=== PATIENT | male | born 1980 ===

== ENCOUNTER 2020-11-28 16:52 | Emergency (ER) | payer OTHER ==
[~2020-11-28] VITALS: Ht 180.3 cm; Wt 105.0 kg
--- NOTE | 2020-11-28 17:13 | PHYS DOC ---
Past Medical History Past Medical History: Kidney Stone (NNEKA CUMMINGS DO) General Adult EDM: Chief Complaint: FLANK PAIN HPI: HPI: Patient is a 40 year old male who presented to ER for evaluation of right flank pain. Patient described the pain is very severe in nature, he also urinated blood. Patient has history of flank pain in the past. Patient denies any chest pain, no trouble breathing, no cough, no fever. The pain radiated to his back. (NNEKA CUMMINGS DO) Review of Systems: Review of Systems: Constitutional: Denies fever or chills. [] Eyes: Denies change in visual acuity. [] HENT: Denies nasal congestion or sore throat. [] Respiratory: Denies cough or shortness of breath. [] Cardiovascular: Denies chest pain or edema. [] GI: Positive for abdominal pain, right flank pain. : Denies dysuria. [] Musculoskeletal: Denies back pain or joint pain. [] Integument: Denies rash. [] Neurologic: Denies headache, focal weakness or sensory changes. [] Endocrine: Denies polyuria or polydipsia. [] Lymphatic: Denies swollen glands. [] Psychiatric: Denies depression or anxiety. [] (NNEKA CUMMINGS DO) Heart Score: C/O Chest Pain: N/A Risk Factors: Risk Factors: DM, Current or recent (<one month) smoker, HTN, HLP, family history of CAD, obesity. Risk Scores: Score 0 - 3: 2.5% MACE over next 6 weeks - Discharge Home Score 4 - 6: 20.3% MACE over next 6 weeks - Admit for Clinical Observation Score 7 - 10: 72.7% MACE over next 6 weeks - Early Invasive Strategies (NNEKA CUMMINGS DO) C/O Chest Pain: No (MIRIAM MCWILLIAMS MD) Current Medications: Current Medications Medications (Trade) Dose Ordered Sig/Mckenzie Start Time Stop Time Status Last Admin Dose Admin Morphine Sulfate (Morphine Sulfate) 4 mg 1X ONCE 11/28/20 17:15 11/28/20 17:16 UNV Ondansetron HCl (Zofran) 4 mg 1X ONCE 11/28/20 17:15 11/28/20 17:16 UNV (NNEKA CUMMINGS DO) Allergies: Allergies: Allergies Coded Allergies Type Severity Reaction Last Updated Verified No Known Drug Allergies 11/28/20 No (NNEKA CUMMINGS DO) Physical Exam: PE: General: Appears uncomfortable, restless in bed unable to find a comfortable position but non toxic Skin: Warm, dry. Normal for ethnicity. HEENT: Atraumatic. PERRLA. Moist mucous membranes. Neck: Trachea midline. Normal ROM. Respiratory: Mildly tachypneic with patient writhing in pain. Normal WOB. CTAB. Cardiovascular: Regular rate and rhythm. Normal peripheral perfusion. No edema. Abdomen: Soft. Right upper quadrant tender. No distension. Back: Right-sided CVA tenderness to palpation. Normal ROM. Musculoskeletal: No swelling or deformity. Neuro: Alert and oriented x 4. MAEE. Psych: Normal affect and mood. (NNEKA CUMMINGS DO) Current Patient Data: Labs: Laboratory Tests Test 11/28/20 17:18 White Blood Count 9.9 x10^3/uL Red Blood Count 4.43 x10^6/uL Hemoglobin 16.6 g/dL Hematocrit 47.3 % Mean Corpuscular Volume 107 fL Mean Corpuscular Hemoglobin 37 pg Mean Corpuscular Hemoglobin Concent 35 g/dL Red Cell Distribution Width 15.3 % Platelet Count 289 x10^3/uL Neutrophils (%) (Auto) 53 % Lymphocytes (%) (Auto) 36 % Monocytes (%) (Auto) 8 % Eosinophils (%) (Auto) 3 % Basophils (%) (Auto) 1 % Neutrophils # (Auto) 5.2 x10^3/uL Lymphocytes # (Auto) 3.6 x10^3/uL Monocytes # (Auto) 0.8 x10^3/uL Eosinophils # (Auto) 0.3 x10^3/uL Basophils # (Auto) 0.1 x10^3/uL Sodium Level 142 mmol/L Potassium Level 3.4 mmol/L Chloride Level 104 mmol/L Carbon Dioxide Level 25 mmol/L Anion Gap 13 Blood Urea Nitrogen 11 mg/dL Creatinine 1.1 mg/dL Estimated GFR (Cockcroft-Gault) 74.9 BUN/Creatinine Ratio 10 Glucose Level 103 mg/dL Calcium Level 8.6 mg/dL Total Bilirubin 0.6 mg/dL Aspartate Amino Transf (AST/SGOT) 63 U/L Alanine Aminotransferase (ALT/SGPT) 88 U/L Alkaline Phosphatase 131 U/L Total Protein 8.4 g/dL Albumin 4.0 g/dL Albumin/Globulin Ratio 0.9 Current Medications Medications (Trade) Dose Ordered Sig/Mckenzie Route PRN Reason Start Time Stop Time Status Last Admin Dose Admin Ondansetron HCl (Zofran) 4 mg 1X ONCE IVP 11/28/20 17:15 11/28/20 17:16 DC 11/28/20 17:22 Morphine Sulfate (Morphine Sulfate) 4 mg 1X ONCE IV 11/28/20 17:15 11/28/20 17:16 DC 11/28/20 17:23 (NNEKA CUMMINGS DO) EKG: EKG: [] (NNEKA CUMMINGS DO) Radiology/Procedures: Radiology/Procedures: [] (NNEKA CUMMINGS DO) Radiology/Procedures: [facility] [address] [place] [address] IMAGING REPORT Signed PATIENT: ROBERT NVAARRETE ACCOUNT: [id number] : 1980 LOCATION: ER AGE: 40 SEX: M EXAM STATUS: REG ER ORD. PHYSICIAN: NNEKA CUMMINGS DO REASON: right flank pain PROCEDURE: CT ABDOMEN PELVIS WO CONTRAST Exam: CT of abdomen and pelvis without contrast INDICATION: Right flank pain TECHNIQUE: Sequential axial images through the abdomen and pelvis obtained without IV contrast. Sagittal and coronal reformatted images were reconstructed from the axial data and reviewed. Exposure: One or more of the following in the visualized dose reduction techniques were utilized for this examination: 1. Automated exposure control 2. Adjustment of the MA and/or KV according to patient size 3. Use of iterative of reconstructive technique Comparisons: None FINDINGS: Heart size is normal. No pericardial. Visualized lung bases are clear. No pleural effusion. Evaluation of the solid organs is limited secondary to noncontrast technique. Liver, spleen, pancreas and adrenals are unremarkable. Gallstones are noted within the gallbladder. No perinephric inflammation or hydronephrosis. No renal or ureteral calculi are identified. Bladder is partially distended and not well evaluated. Prostate is not enlarged. No abnormal calcifications noted within the penis. Submucosal fat deposition is noted diffusely throughout the colon as well as the distal small bowel. No free intra-abdominal air or fluid. No obstruction. Abdominal aorta has a normal course and caliber. Abdominal vasculature is patent. No enlarged intra-abdominal lymph nodes are identified. No suspicious osseous lesions or acute fractures. IMPRESSION: 1. No renal or ureteral calculi. No evidence for obstructive uropathy. 2. Diffuse submucosal fat deposition noted throughout the colon and distal ileum likely sequela of chronic repetitive inflammation. Correlate for inflam matory bowel disease. 3. Cholelithiasis 4. Abnormal calcification noted along the tunica albuginea of the penis. This is nonspecific in etiology, could relate to prior injury/infection. Correlate with for Peyronie disease. Electronically signed by: Rene Melvin MD (11/28/2020 5:59 PM) [facility] DICTATED and SIGNED BY: RENE MELVIN MD DATE: 11/28/20 [id number] [facility] [address] [place] [address] IMAGING REPORT Signed PATIENT: ROBERT NAVARRETE ACCOUNT: [id number] : 1980 LOCATION: ER AGE: 40 SEX: M EXAM STATUS: REG ER ORD. PHYSICIAN: MIRIAM MCWILLIAMS MD REASON: RUQ pain PROCEDURE: ABDOMEN LTD EXAM: ULTRASOUND ABDOMEN LIMITED CLINICAL HISTORY: Reason: RUQ pain / Spl. Instructions: / History: COMPARISON: None available. TECHNIQUE: Limited ultrasound examination of the right upper quadrant of the abdomen was performed. FINDINGS: Examination is markedly limited given suboptimal sonographic window. The pancreas is mostly obscured by overlying bowel gas.. Liver: 16.8 cm in length. Increased hepatic echogenicity relative to the right kidney consistent with hepatic steatosis.. There are no focal liver lesions. Flow seen within the portal veins. Biliary: Shadowing gallstones are seen within the gallbladder. No definite wall thickening or pericholecystic fluid.. No wall thickening or pericholecystic fluid. There is no pain with direct transducer pressure over the gallbladder. Common bile duct measures 0.5 cm. Right Kidney: 11.8 cm in length. Normal renal cortical echotexture and thickness. No focal renal lesion, shadowing renal calculus or hydronephrosis. Visualized portions of the abdominal aorta and inferior vena cava are unremarkable. There is no free fluid in the subhepatic space. IMPRESSION: 1. Cholelithiasis without sonographic evidence for acute cholecystitis. 2. Increased echogenicity of the liver likely fatty liver. Electronically signed by: Alexis Mccollum MD (11/28/2020 6:53 PM) [facility] DICTATED and SIGNED BY: ALEXIS MCCOLLUM MD DATE: 11/28/20 [id number] (MIRIAM MCWILLIAMS MD) Course & Med Decision Making: Course & Med Decision Making Pertinent Labs and Imaging studies reviewed. (See chart for details) Patient is a 40-year-old male who presented abdominal pain, CT scan is pending at this time, checkout to Dr. Miriam Mcwilliams at shift change, 6 PM. (NNEKA CUMMINGS DO) Course & Med Decision Making Accepted patient care at shift change pending urine and CT results. CT does not show any renal calculi but does show moderate cholelithiasis. Patient states that he does drink about a pint of whiskey daily. (MIRIAM MCWILLIAMS MD) Dragon Disclaimer: Dragon Disclaimer: This electronic medical record was generated, in whole or in part, using a voice recognition dictation system. (NNEKA CUMMINGS DO) Departure Departure Impression: Primary Impression: Abdominal pain Additional Impressions: Dehydration Cholelithiasis Gastritis Disposition: 01 HOME / SELF CARE / HOMELESS Condition: IMPROVED Patient Instructions: Cholelithiasis Scripts Omeprazole (OMEPRAZOLE) 40 Mg Capsule. 1 CAP PO DAILY for antacid, #30 CAP 3 Refills Prov: MIRIAM MCWILLIAMS MD 11/28/20 NNEKA CUMMINGS DO Nov 28, 2020 17:13 MIRIAM MCWILLIAMS MD Nov 28, 2020 18:14
[2020-11-28] MEDS ORDERED: ONDANSETRON PF 4 MG/2 ML VIAL. IVP ONE (17:15)
[2020-11-28] MEDS ORDERED: MORPHINE SULFATE 4 MG/ML VIAL. IV ONE (17:15)
[2020-11-28 17:31] LABS: BASO # 0.1 x10^3/uL (0.0-0.2); BASO % 1 % (0-3); EOS # 0.3 x10^3/uL (0.0-0.7); EOS % 3 % (0-3); HEMATOCRIT 47.3 % (39.0-53.0); HEMOGLOBIN 16.6 g/dL (13.0-17.5); LYMPH # 3.6 x10^3/uL (1.0-4.8); LYMPH % 36 % (24-48); MEAN CORPUSCULAR HEMOGLOBIN 37 pg (25-35); MEAN CORPUSCULAR HGB CONC 35 g/dL (31-37); MEAN CORPUSCULAR VOLUME 107 fL (79-100); MONO # 0.8 x10^3/uL (0.0-1.1); MONO % 8 % (0-9); NEUT # 5.2 x10^3/uL (1.8-7.7); NEUT % 53 % (31-73); PLATELET COUNT 289 x10^3/uL (140-400); RED BLOOD COUNT 4.43 x10^6/uL (4.30-5.70); RED CELL DISTRIBUTION WIDTH 15.3 % (11.5-14.5); WHITE BLOOD COUNT 9.9 x10^3/uL (4.0-11.0)
[2020-11-28 17:35] LABS: CALCIUM 8.6 mg/dL (8.5-10.1); CREATININE 1.1 mg/dL (0.7-1.3); GFR 74.9; POTASSIUM 3.4 mmol/L (3.5-5.1)
[2020-11-28 17:41] LABS: ALBUMIN/GLOBULIN RATIO 0.9 (1.0-1.7); TOTAL BILIRUBIN 0.6 mg/dL (0.2-1.0); TOTAL PROTEIN 8.4 g/dL (6.4-8.2)
--- NOTE | 2020-11-28 18:02 | RAD ---
Exam: CT of abdomen and pelvis without contrast INDICATION: Right flank pain TECHNIQUE: Sequential axial images through the abdomen and pelvis obtained without IV contrast. Sagit edin and coronal reformatted images were reconstructed from the axial data and reviewed. Exposure: One or more of the following in the visualized dose reduction techniques were utilized for this examination: 1. Automated exposure control 2. Adjustment of the MA and/or KV according to patient size 3. Use of iterative of reconstructive technique Comparisons: None FINDINGS: Heart size is normal. No pericardial. Visualized lung bases are clear. No pleural effusion. Evaluation of the solid organs is limited secondary to noncontrast technique. Liver, spleen, pancreas and adrenals are unremarkable. Gallstones are noted within the gallbladder. No perinephric inflammation or hydronephrosis. No renal or ureteral calculi are identified. Bladder is partially distended and not well evaluated. Prostate is not enlarged. No abnormal calcific ations noted within the penis. Submucosal fat deposition is noted diffusely throughout the colon as well as the distal small bowel. No free intra-abdominal air or fluid. No obstruction. Abdominal aorta has a normal course and caliber. Abdominal vasculature is patent. No enlarged intra-abdominal lymph nodes are identified. No suspicious osseous lesions or acute fractures. IMPRESSION: 1. No renal or ureteral calculi. No evidence for obstructive uropathy. 2. Diffuse submucosal fat deposition noted throughout the colon and distal ileum likely sequela of c hronic repetitive inflammation. Correlate for inflammatory bowel disease. 3. Cholelithiasis 4. Abnormal calcification noted along the tunica albuginea of the penis. This is nonspecific in etio logy, could relate to prior injury/infection. Correlate with for Peyronie disease. Electronically signed by: Rene Ruffin MD (11/28/2020 5:59 PM) [facility]
[2020-11-28] MEDS ORDERED: IV NORMAL SALINE 1000ML BAG 1,000 ML IV ONE (18:30)
[2020-11-28] MEDS ORDERED: KETOROLAC 15 MG/ML VIAL. IVP ONE (18:30)
--- NOTE | 2020-11-28 18:56 | RAD ---
EXAM: ULTRASOUND ABDOMEN LIMITED CLINICAL HISTORY: Reason: RUQ pain / Spl. Instructions: / History: COMPARISON: None available. TECHNIQUE: Limited ultrasound examination of the right upper quadrant of the abdomen was performed. FINDINGS: Examination is markedly limited given suboptimal sonographic window. The pancreas is mostly obscured by overlying bowel gas.. Liver: 16.8 cm in length. Increased hepatic echogenicity relative to the right kidney consistent wi th hepatic steatosis.. There are no focal liver lesions. Flow seen within the portal veins. Biliary: Shadowing gallstones are seen within the gallbladder. No definite wall thickening or pericho lecystic fluid.. No wall thickening or pericholecystic fluid. There is no pain with direct transduc er pressure over the gallbladder. Common bile duct measures 0.5 cm. Right Kidney: 11.8 cm in length. Normal renal cortical echotexture and thickness. No focal renal lesi on, shadowing renal calculus or hydronephrosis. Visualized portions of the abdominal aorta and inferior vena cava are unremarkable. There is no free fluid in the subhepatic space. IMPRESSION: 1. Cholelithiasis without sonographic evidence for acute cholecystitis. 2. Increased echogenicity of the liver likely fatty liver. Electronically signed by: Alexis Monroy MD (11/28/2020 6:53 PM) [facility]
[2020-11-28 20:01] LABS: BILIRUBIN,URINE SMALL (NEG); CLARITY,URINE CLEAR; COLOR,URINE AMBER; NITRITE,URINE NEGATIVE (NEG); PROTEIN,URINE NEGATIVE (NEG-TRACE)
[2020-11-28 20:09] LABS: AMORPHOUS SEDIMENT,UR PRESENT /HPF; BACTERIA,URINE 0 /HPF (0-FEW); RBC,URINE 0 /HPF (0-2)
[2020-11-28] MEDS ORDERED: OMEP40CA7 PO (20:23)
[2020-11-28 20:39] VITALS: BP 133/79
== END 2020-11-28 20:55 | disposition home or self-care (01) ==
LOC: ER 16:52
DX: K29.70 Gastritis, unspecified, without bleeding (principal); K80.20 Calculus of gallbladder without cholecystitis without obstruction; E86.0 Dehydration; Z87.442 Personal history of urinary calculi
CPT/HCPCS: 36415; 74176; 76705; 80053; 81001; 83690; 85025; 96361; 96374; 96375; 99285; J1885; J2270; J2405; J7030